=== PATIENT | female | born 1980 | race Caucasian/White ===

== ENCOUNTER 2017-10-28 06:40 | Emergency (ER) | payer SELFPAY ==
[2017-10-28] MEDS ORDERED: ONDANSETRON 4 MG (ODT) TAB ONE (06:56)
--- NOTE | 2017-10-28 08:12 | ER ---
Nurse's Notes [facility] Name: Jaclyn Wolf Age: 37 yrs Sex: Female : 1980 Arrival Date: 10/28/2017 Time: 06:42 Bed 13 Private MD: Diagnosis: Nausea and vomiting Presentation: 10/28 06:48 Presenting complaint: Patient states: vomiting since 0130. pt c/o upper abd and ak1 epigastric pain only while vomiting. Transition of care: patient was not received from another setting of care. Onset of symptoms was October 28, 2017. Risk Assessment: Do you want to hurt yourself or someone else? Patient reports no desire to harm self or others. Initial Sepsis Screen: Does the patient meet any 2 criteria? No. Patient's initial sepsis screen is negative. Does the patient have a suspected source of infection? No. Patient's initial sepsis screen is negative. Care prior to arrival: None. 06:48 Method Of Arrival: Ambulatory ak1 06:48 Acuity: MONIKA 3 ak1 Triage Assessment: 06:49 General: Appears in no apparent distress. Behavior is calm, cooperative. Pain: Denies ak1 pain. GI: Reports nausea, vomiting, Patient currently denies diarrhea. 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 - Social history:: Smoking status: Patient uses tobacco products, smokes one-half pack cigarettes per day. - Ebola Screening: : No symptoms or risks identified at this time. Screenin:50 Abuse screen: Denies threats or abuse. Denies injuries from another. Nutritional ak1 screening: No deficits noted. Tuberculosis screening: No symptoms or risk factors identified. Fall Risk None identified. Assessment: 06:51 General: Appears in no apparent distress. uncomfortable, Behavior is calm, cooperative, bs1 appropriate for age. Pain: Complains of pain in epigastric. Neuro: Level of Consciousness is awake, alert, obeys commands, Oriented to person, place, time, situation. Cardiovascular: Denies chest pain, shortness of breath, Heart tones S1 S2 present Capillary refill < 3 seconds Patient's skin is warm and dry. Respiratory: Airway is patent Trachea midline Respiratory effort is even, unlabored, Respiratory pattern is regular, symmetrical, Breath sounds are clear bilaterally. GI: Abdomen is round non-distended, Bowel sounds present X 4 quads. Abdomen is tender to palpation in epigastric area Reports epigastric pain, nausea, vomiting, Patient currently denies bloody stool, diarrhea, rectal bleeding. : Denies burning with urination. EENT: No signs and/or symptoms were reported regarding the EENT system. Derm: Skin is intact, Skin is pink, warm \\T\\ dry. normal. Musculoskeletal: Circulation, motion, and sensation intact. Capillary refill < 3 seconds, Range of motion: intact in all extremities. 06:57 Reassessment: Report given to JOCELYNN Woods. bs1 07:34 Reassessment: Patient appears in no apparent distress at this time. Patient and/or tw2 family updated on plan of care and expected duration. Pain level reassessed. Patient is alert, oriented x 3, equal unlabored respirations, skin warm/dry/pink. Patient states feeling better. Patient states symptoms have improved. 07:36 Reassessment: pt given sprite and water at this time, pt stated "im ready for something tw2 to drink". 08:18 Reassessment: Patient appears in no apparent distress at this time. Patient and/or tw2 family updated on plan of care and expected duration. Pain level reassessed. Patient is alert, oriented x 3, equal unlabored respirations, skin warm/dry/pink. Vital Signs: 06:49 BP 135 / 86; Pulse 76; Resp 20; Temp 98.0(O); Pulse Ox 99% on R/A; Weight 72.57 kg (R); ak1 Height 5 ft. 3 in. (160.02 cm) (R); Pain 0/10; 07:34 BP 126 / 87; Pulse 66; Resp 17; Pulse Ox 99% on R/A; tw2 06:49 Body Mass Index 28.34 (72.57 kg, 160.02 cm) ak1 ED Course: 06:42 Patient arrived in ED. am2 06:48 [facility]C [facility] snw 06:48 Morgan Wong MD is Attending Physician. snw 06:49 Triage completed. ak1 06:49 Arm band placed on Patient placed in an exam room, on a stretcher, on pulse oximetry, ak1 Patient notified of wait time. 06:50 Patient has correct armband on for positive identification. Bed in low position. Call ak1 light in reach. Side rails up X 1. Adult w/ patient. Pulse ox on. NIBP on. 06:59 Peggy Lockhart, RN is Primary Nurse. tw2 07:45 Diet: Patient given water. Tolerated well pt given sprite, pt tolerated well.. tw2 07:46 No provider procedures requiring assistance completed. tw2 08:18 Patient did not have IV access during this emergency room visit. tw2 Administered Medications: 06:54 Drug: Zofran 4 mg Route: PO; bs1 07:59 Follow up: Response: No adverse reaction; Marked relief of symptoms; Nausea is decreasedtw2 Outcome: 08:11 Discharge ordered by . snw 08:18 Discharged to home ambulatory, with friend. tw2 08:18 Condition: stable 08:18 Discharge instructions given to patient, friend, Instructed on discharge instructions, follow up and referral plans. medication usage, Demonstrated understanding of instructions, follow-up care, medications, Prescriptions given X 1. 08:19 Patient left the ED. tw2 Signatures: Isabel Velazquez, TURNING AND BEADING MACHINE OPERATOR-C TURNING AND BEADING MACHINE OPERATOR-Csnw Denise Lopez, RN RN ak1 Peggy Lockhart, JOCELYNN RN tw2 Sol Rosen Brittany RN RN bs1
--- NOTE | 2017-10-28 08:12 | EDPHYS ---
Physician Documentation [facility] Name: Jaclyn Wolf Age: 37 yrs Sex: Female : 1980 Arrival Date: 10/28/2017 Time: 06:42 Bed 13 Private MD: ED Physician Morgan Wong HPI: 10/28 07:01 This 37 yrs old Female presents to ER via Ambulatory with complaints of snw Vomiting. 07:01 The patient presents to the emergency department with nausea, vomiting. Onset: The snw symptoms/episode began/occurred suddenly, at 01:00. Possible causes: unknown. The symptoms are aggravated by nothing. The symptoms are alleviated by nothing. Associated signs and symptoms: The patient has no apparent associated signs or symptoms. Severity of symptoms: At their worst the symptoms were moderate. The patient has not experienced similar symptoms in the past. It is unknown whether or not the patient has recently seen a physician. 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 - Social history:: Smoking status: Patient uses tobacco products, smokes one-half pack cigarettes per day. - Ebola Screening: : No symptoms or risks identified at this time. ROS: 07:01 Constitutional: Negative for fever, chills, and weight loss, Eyes: Negative for injury, snw pain, redness, and discharge, ENT: Negative for injury, pain, and discharge, Neck: Negative for injury, pain, and swelling, Cardiovascular: Negative for chest pain, palpitations, and edema, Respiratory: Negative for shortness of breath, cough, wheezing, and pleuritic chest pain, Abdomen/GI: Negative for abdominal pain, diarrhea, and constipation, + nausea and vomiting since 0100 Back: Negative for injury and pain, MS/Extremity: Negative for injury and deformity, Skin: Negative for injury, rash, and discoloration, Neuro: Negative for headache, weakness, numbness, tingling, and seizure. Exam: 07:00 Constitutional: This is a well developed, well nourished patient who is awake, alert, snw and in no acute distress. Head/Face: Normocephalic, atraumatic. Eyes: Pupils equal round and reactive to light, extra-ocular motions intact. Lids and lashes normal. Conjunctiva and sclera are non-icteric and not injected. Cornea within normal limits. Periorbital areas with no swelling, redness, or edema. Neck: Trachea midline, no thyromegaly or masses palpated, and no cervical lymphadenopathy. Supple, full range of motion without nuchal rigidity, or vertebral point tenderness. No Meningismus. Chest/axilla: Normal chest wall appearance and motion. Nontender with no deformity. No lesions are appreciated. Cardiovascular: Regular rate and rhythm with a normal S1 and S2. No gallops, murmurs, or rubs. Normal PMI, no JVD. No pulse deficits. Respiratory: Lungs have equal breath sounds bilaterally, clear to auscultation and percussion. No rales, rhonchi or wheezes noted. No increased work of breathing, no retractions or nasal flaring. Abdomen/GI: Soft, non-tender, with normal bowel sounds. No distension or tympany. No guarding or rebound. No evidence of tenderness throughout. Back: No spinal tenderness. No costovertebral tenderness. Full range of motion. Skin: Warm, dry with normal turgor. Normal color with no rashes, no lesions, and no evidence of cellulitis. MS/ Extremity: Pulses equal, no cyanosis. Neurovascular intact. Full, normal range of motion. Neuro: Awake and alert, GCS 15, oriented to person, place, time, and situation. Cranial nerves II-XII grossly intact. Motor strength 5/5 in all extremities. Sensory grossly intact. Cerebellar exam normal. Normal gait. Psych: Awake, alert, with orientation to person, place and time. Behavior, mood, and affect are within normal limits. 07:00 ENT: External ear(s): are unremarkable, Ear canal(s): are normal, Dental exam: edentulous. Vital Signs: 06:49 BP 135 / 86; Pulse 76; Resp 20; Temp 98.0(O); Pulse Ox 99% on R/A; Weight 72.57 kg (R); ak1 Height 5 ft. 3 in. (160.02 cm) (R); Pain 0/10; 07:34 BP 126 / 87; Pulse 66; Resp 17; Pulse Ox 99% on R/A; tw2 06:49 Body Mass Index 28.34 (72.57 kg, 160.02 cm) ak1 MDM: 06:48 Patient medically screened. snw 08:13 Data reviewed: vital signs, nurses notes. Data interpreted: Pulse oximetry: on room air snw is 99 %. Interpretation: normal. Counseling: I had a detailed discussion with the patient and/or guardian regarding: the historical points, exam findings, and any diagnostic results supporting the discharge/admit diagnosis, the presence of at least one elevated blood pressure reading (>120/80) during this emergency department visit, lab results, the need for outpatient follow up, to return to the emergency department if symptoms worsen or persist or if there are any questions or concerns that arise at home. Special discussion: I have referred the patient to see his PCP for further evaluation of high blood pressure. Based on the history and exam findings, there is no indication for further emergent testing or inpatient evaluation. I discussed with the patient/guardian the need to see the primary care provider for further evaluation of the symptoms. 10/28 07:00 Order name: Urine Dipstick--Ancillary (enter results) oe 10/28 07:30 Order name: PO challenge; Complete Time: 07:45 snw Administered Medications: 06:54 Drug: Zofran 4 mg Route: PO; bs1 07:59 Follow up: Response: No adverse reaction; Marked relief of symptoms; Nausea is decreasedtw2 Disposition: 10/29 08:00 Co-signature as Attending Physician, Morgan Wong MD Available for consultation at ps1 all times.. Disposition: 10/28/17 08:11 Discharged to Home. Impression: Nausea and vomiting. - Condition is Stable. - Discharge Instructions: Food Choices to Help Relieve Diarrhea, Adult, Clear Liquid Diet, Nausea and Vomiting. - Prescriptions for Zofran 4 mg Oral Tablet - take 1 tablet by ORAL route 3-4 times daily As needed; 20 tablet. - Work release form, Family Work Release, Medication Reconciliation Form, Thank You Letter, Antibiotic Education, Prescription Opioid Use form. - Follow up: Private Physician; When: 2 - 3 days; Reason: Recheck today's complaints, Continuance of care, Re-evaluation by your physician. Follow up: Emergency Department; When: As needed; Reason: Worsening of condition. Signatures: Dispatcher [employer] EDMS Isabel Velazquez, TELEGRAPH LINEMAN-C TELEGRAPH LINEMAN-Csnw Denise Lopez, RN RN ak1 Peggy Lockhart RN RN tw2 Morgan Wong MD MD ps1 Lamar Barrios, RN RN bs1 Corrections: (The following items were deleted from the chart) 10/28 08:19 08:11 10/28/2017 08:11 Discharged to Home. Impression: Nausea and vomiting. Condition tw2 is Stable. Forms are Medication Reconciliation Form, Thank You Letter, Antibiotic Education, Prescription Opioid Use. Follow up: Private Physician; When: 2 - 3 days; Reason: Recheck today's complaints, Continuance of care, Re-evaluation by your physician. Follow up: Emergency Department; When: As needed; Reason: Worsening of condition. snw
[2017-10-28 09:57] LABS: Urine Blood NEGATIVE (NEG); Urine Glucose NEGATIVE (NEG); Urine Protein TRACE (NEG); Urine Specific Gravity 1.015 (1.005-1.030); Urine pH 8.5 (5.0-7.0)
== END 2017-10-28 08:19 | disposition home or self-care (01) ==
LOC: ER 06:40
DX: R11.2 Nausea with vomiting, unspecified (principal); F17.210 Nicotine dependence, cigarettes, uncomplicated; Z88.0 Allergy status to penicillin
CPT/HCPCS: 81003; 99283

== ENCOUNTER 2018-03-26 13:06 | Emergency (ER) | payer SELFPAY ==
[2018-03-26] MEDS ORDERED: ACETAMINOPHEN 325 MG TABLET ONE (16:15)
--- NOTE | 2018-03-26 16:25 | EDPHYS ---
Physician Documentation [facility] Name: Jaclyn Wolf Age: 37 yrs Sex: Female : 1980 Arrival Date: 03/26/2018 Time: 13:08 Bed 28 Private MD: None, None ED Physician Carlyle Fowler HPI: 03/26 14:59 This 37 yrs old Female presents to ER via Ambulatory with complaints of Sore jmm Throat. 14:59 The patient presents with sore throat. Onset: The symptoms/episode began/occurred jmm gradually, 4 day(s) ago. Associated signs and symptoms: Pertinent positives: fever, flu-like symptoms. This is a 37 year old female with no chronic medical conditions that presents to the ED with sore throat beginning approx 4 days ago with fever and chills. Patient denies cough. . Historical: - Allergies: 13:21 PENICILLINS; aj - Home Meds: 13:21 None [Active]; aj - PMHx: 13:21 None; aj - PSHx: 13:21 ; aj - Immunization history:: Adult Immunizations up to date. - Social history:: Smoking status: Patient uses tobacco products, smokes one-half pack cigarettes per day. - Ebola Screening: : Patient negative for fever greater than or equal to 101.5 degrees Fahrenheit, and additional compatible Ebola Virus Disease symptoms Patient denies exposure to infectious person Patient denies travel to an Ebola-affected area in the 21 days before illness onset No symptoms or risks identified at this time. ROS: 14:59 Eyes: Negative for injury, pain, redness, and discharge. jmm 14:59 Cardiovascular: Negative for chest pain, palpitations, and edema, Respiratory: Negative for shortness of breath, cough, wheezing, and pleuritic chest pain, Abdomen/GI: Negative for abdominal pain, nausea, vomiting, diarrhea, and constipation. 14:59 Constitutional: Positive for fever. 14:59 ENT: Positive for sore throat. 14:59 All other systems are negative. Exam: 14:59 Head/Face: atraumatic. Eyes: EOMI, no conjunctival erythema appreciated Chest/axilla: jm Normal chest wall appearance and motion. Cardiovascular: Regular rate and rhythm. No edema appreciated Respiratory: Normal respirations, no respiratory distress appreciated 14:59 Back: Normal ROM Skin: General appearance color normal MS/ Extremity: Moves all extremities, no obvious deformities appreciated, no edema noted to the lower extremities Neuro: Awake and alert, normal gait Psych: Behavior is normal, Mood is normal, Patient is cooperative and pleasant 14:59 Constitutional: The patient appears in no acute distress, alert, awake. 14:59 ENT: Posterior pharynx: erythema, that is mild. 14:59 Neck: Lymph nodes: lymphadenopathy is appreciated, anterior cervical nodes. Vital Signs: 13:21 BP 144 / 88; Pulse 97; Resp 18; Temp 99.9; Pulse Ox 100% on R/A; Weight 72.57 kg; aj Height 5 ft. 3 in. (160.02 cm); 16:41 BP 155 / 101; Pulse 97; Resp 17; Pulse Ox 100% on R/A; rv 13:21 Body Mass Index 28.34 (72.57 kg, 160.02 cm) aj MDM: 14:59 Patient medically screened. [facility] 16:23 Data reviewed: vital signs, nurses notes. Counseling: I had a detailed discussion with [facility] the patient and/or guardian regarding: the historical points, exam findings, and any diagnostic results supporting the discharge/admit diagnosis, lab results, the need for outpatient follow up, to return to the emergency department if symptoms worsen or persist or if there are any questions or concerns that arise at home. 03/26 15:12 Order name: Flu; Complete Time: 16:20 [facility] 03/26 15:12 Order name: Strep; Complete Time: 16:20 [facility] Administered Medications: 16:23 Drug: Tylenol 650 mg Route: PO; rv Disposition: 17:53 Co-signature as Attending Physician, Carlyle Fowler MD. rn Disposition: 03/26/18 16:23 Discharged to Home. Impression: Streptococcal pharyngitis. - Condition is Stable. - Discharge Instructions: Strep Throat. - Prescriptions for Zithromax Z- Reynaldo 250 mg Oral Tablet - take 1 tablet by ORAL route as directed for 5 days Day 1 - take two (2) tablets one time. Day 2, 3, 4 , 5 take one (1) tablet once daily.; 6 tablet. - Medication Reconciliation Form, Thank You Letter, Antibiotic Education, Prescription Opioid Use form. - Follow up: Private Physician; When: 2 - 3 days; Reason: Recheck today's complaints, Continuance of care, Re-evaluation by your physician. Signatures: Dispatcher [employer] Sol Enriquez RN Rashid Damon PA PA jmm Nieto, Roman, MD MD rn Vicente, Ronaldo, RN RN rv Corrections: (The following items were deleted from the chart) 16:42 16:23 03/26/2018 16:23 Discharged to Home. Impression: Streptococcal pharyngitis. rv Condition is Stable. Forms are Medication Reconciliation Form, Thank You Letter, Antibiotic Education, Prescription Opioid Use. Follow up: Private Physician; When: 2 - 3 days; Reason: Recheck today's complaints, Continuance of care, Re-evaluation by your physician. arun
--- NOTE | 2018-03-26 16:25 | ER ---
Nurse's Notes [facility] Name: Jaclyn Wolf Age: 37 yrs Sex: Female : 1980 Arrival Date: 03/26/2018 Time: 13:08 Bed 28 Private MD: None, None Diagnosis: Streptococcal pharyngitis Presentation: 03/26 13:20 Presenting complaint: Patient states: Sore throat, nasal congestion, body aches for 1 aj week. Transition of care: patient was not received from another setting of care. Onset of symptoms was March 19, 2018. Risk Assessment: Do you want to hurt yourself or someone else? Patient reports no desire to harm self or others. Initial Sepsis Screen: Does the patient meet any 2 criteria? No. Patient's initial sepsis screen is negative. Does the patient have a suspected source of infection? No. Patient's initial sepsis screen is negative. Care prior to arrival: None. 13:20 Method Of Arrival: Ambulatory aj 13:20 Acuity: MONIKA 4 aj Triage Assessment: 13:21 General: Appears in no apparent distress. comfortable, Behavior is calm, cooperative, aj appropriate for age. Pain: Complains of pain in body aches. EENT: Reports pain when swallowing. EENT: Throat is reddened. Neuro: Level of Consciousness is awake, alert, obeys commands, Oriented to person, place, time, situation, Appropriate for age. Respiratory: Airway is patent Respiratory effort is even, unlabored, Respiratory pattern is regular, symmetrical. Derm: Skin is intact, is healthy with good turgor, Skin is pink, warm \T\ dry. normal. Historical: - Allergies: 13:21 PENICILLINS; aj - Home Meds: 13:21 None [Active]; aj - PMHx: 13:21 None; aj - PSHx: 13:21 ; aj - Immunization history:: Adult Immunizations up to date. - Social history:: Smoking status: Patient uses tobacco products, smokes one-half pack cigarettes per day. - Ebola Screening: : Patient negative for fever greater than or equal to 101.5 degrees Fahrenheit, and additional compatible Ebola Virus Disease symptoms Patient denies exposure to infectious person Patient denies travel to an Ebola-affected area in the 21 days before illness onset No symptoms or risks identified at this time. Screenin:58 Abuse screen: Denies threats or abuse. Denies injuries from another. Nutritional rv screening: No deficits noted. Tuberculosis screening: No symptoms or risk factors identified. Fall Risk None identified. Assessment: 14:55 General: Appears in no apparent distress. comfortable, Behavior is calm, cooperative. rv Pain: Complains of pain in generalized (body aches). Neuro: Level of Consciousness is awake, alert, obeys commands, Oriented to person, place, time, situation. Cardiovascular: Capillary refill < 3 seconds. Respiratory: Airway is patent Breath sounds are clear bilaterally. GI: No signs and/or symptoms were reported involving the gastrointestinal system. : No signs and/or symptoms were reported regarding the genitourinary system. EENT: Throat is clear. EENT: Reports pain in throat. Derm: Skin is intact. Musculoskeletal: No signs and/or symptoms reported regarding the musculoskeletal system. 14:57 Respiratory: Respiratory effort is even. rv Vital Signs: 13:21 BP 144 / 88; Pulse 97; Resp 18; Temp 99.9; Pulse Ox 100% on R/A; Weight 72.57 kg; aj Height 5 ft. 3 in. (160.02 cm); 16:41 BP 155 / 101; Pulse 97; Resp 17; Pulse Ox 100% on R/A; rv 13:21 Body Mass Index 28.34 (72.57 kg, 160.02 cm) aj ED Course: 13:08 Patient arrived in ED. mr 13:08 None, None is Private Physician. mr 13:21 Triage completed. aj 13:21 Arm band placed on left wrist. Patient placed in waiting room, Patient notified of wait aj time. 14:53 Rashid Stafford PA is PHCP. [facility] 14:53 Carlyle Fowler MD is Attending Physician. [facility] 14:58 Patient has correct armband on for positive identification. Bed in low position. Call rv light in reach. Side rails up X 1. Adult w/ patient. Pulse ox on. NIBP on. 16:41 No provider procedures requiring assistance completed. Patient did not have IV access rv during this emergency room visit. Administered Medications: 16:23 Drug: Tylenol 650 mg Route: PO; rv Outcome: 16:23 Discharge ordered by . arun 16:41 Discharged to home ambulatory. rv 16:41 Condition: good 16:41 Discharge instructions given to patient, Instructed on discharge instructions, follow up and referral plans. medication usage, Demonstrated understanding of instructions, follow-up care, medications, Prescriptions given X 1. 16:42 Patient left the ED. rv Signatures: Sol Lopez, RN RN Rashid Ellsworth PA PA jmm Rivera, Mary NatoRodrigo RN RN rv Corrections: (The following items were deleted from the chart) 58 14:55 EENT: No signs and/or symptoms were reported regarding the EENT system. rv rv 14:58 14:55 EENT: Throat is clear rv rv
== END 2018-03-26 16:42 | disposition home or self-care (01) ==
LOC: ER 13:06
DX: J02.0 Streptococcal pharyngitis (principal); F17.210 Nicotine dependence, cigarettes, uncomplicated; Z88.0 Allergy status to penicillin
CPT/HCPCS: 87081; 87804; 99283